=== PATIENT | male | born 1990 | race African-American/Black ===

== ENCOUNTER 2018-02-09 19:21 | Emergency (ER) | payer SELFPAY ==
[2018-02-09] MEDS ORDERED: Sodium Chloride 0.9% 10 ML Syringe FLUSH PRN ×2 (19:51→20:19)
--- NOTE | 2018-02-09 20:08 | EDM.PDOC ---
ED HPI GENERAL MEDICAL PROBLEM - General Chief Complaint: General Stated Complaint: BLOOD IN VOMIT Time Seen by Provider: 02/09/18 20:01 Source of Information: Reports: Patient History Limitations: Reports: No Limitations - History of Present Illness INITIAL COMMENTS - FREE TEXT/NARRATIVE: 27-year-old male is sent over from the walk-in clinic for evaluation and treatment of hemoptysis. Reportedly over the last 3 weeks the patient has coughed about 7 or 8 times. States when he has been coughing he will have blood in his sputum. Estimates the first is maybe a tablespoon but as he coughs up the rest of it he will be just blood tinged and then it resolves. He denies any associated symptoms. He denies any fatigue, dizziness, lightheadedness, syncope , chest pain, shortness of breath, ear pain, sore throat, unintentional weight loss or weight gain, skin rashes, joint swelling or pain, nausea, vomiting or any abdominal pain. Reports he has a good appetite. Denies any skin infections or any recent dental infection. Patient reports a lives at home with 2 roommates who do not have any symptoms. States he works at [employer] and works 55-60 hours per week. Reports that his job is very strenuous and he is often lifting. States he has only been out of the country, to [place], [place]. No recent travel. Denies any known exposure to any pathogens. Reports he relocated to [place] from [place] about 3-4 months ago. Patient is otherwise healthy and is not on any medication. X-ray done in the walk-in clinic showed a cavitary lesion in the right upper lobe. Differential included a septic emboli, atypical infection or necrotic tumor. CT of the chest with IV contrast recommended for further evaluation. Patient also had a CBC done which showed a slightly elevated blood cell count of 14.4.s. Patient reports he was adopted as a baby. Does not know his biological families history. 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 Duration: Week(s): (3) - Related Data Allergies Allergy/AdvReac Type Severity Reaction Status Date / Time No Known Allergies Allergy Verified 02/09/18 19:36 Home Meds: Home Meds . [No Known Home Meds] 02/09/18 [History] Past Medical History - Past Surgical History Musculoskeletal Surgical History: Reports: Other (See Below) Other Musculoskeletal Surgeries/Procedures:: left knee scope 2 times Social & Family History - Tobacco Use Smoking Status *Q: Current Every Day Smoker Years of Tobacco use: 5 Packs/Tins Daily: 0.2 - Caffeine Use Caffeine Use: Reports: Coffee, Energy Drinks, Soda, Tea - Recreational Drug Use Recreational Drug Use: No ED ROS GENERAL - Review of Systems Review Of Systems: See Below Constitutional: Denies: Fever, Chills, Malaise, Weakness, Fatigue, Diaphoresis, Weight Loss, Weight Gain HEENT: Denies: Ear Pain, Throat Pain Respiratory: Reports: Cough, Hemoptysis. Denies: Shortness of Breath Cardiovascular: Denies: Chest Pain, Lightheadedness, Syncope Endocrine: Denies: Fatigue GI/Abdominal: Denies: Abdominal Pain, Nausea, Vomiting Musculoskeletal: Denies: Joint Pain, Joint Swelling Skin: Denies: Rash Neurological: Denies: Headache, Syncope ED EXAM, GENERAL - Physical Exam Exam: See Below Exam Limited By: No Limitations General Appearance: Alert, WD/WN, No Apparent Distress Eye Exam: Bilateral Eye: Normal Inspection Ears: Normal External Exam Nose: Normal Inspection Throat/Mouth: Normal Inspection, Normal Lips, Normal Oropharynx, Normal Voice, No Airway Compromise Respiratory/Chest: No Respiratory Distress, Lungs Clear, Normal Breath Sounds Cardiovascular: Normal Peripheral Pulses, Regular Rate, Rhythm, No Murmur GI/Abdominal: Normal Bowel Sounds, Soft, Non-Tender Neurological: Alert, Oriented, Normal Cognition Psychiatric: Normal Affect, Normal Mood Skin Exam: Warm, Dry, Normal Color Course - Vital Signs Last Recorded V/S: Last Vital Signs Temp 98.4 F 02/09/18 19:32 Pulse 80 02/09/18 22:10 Resp 16 02/09/18 22:10 BP 141/90 H 02/09/18 22:10 Pulse Ox 99 02/09/18 22:10 - Orders/Labs/Meds Orders: Active Orders 24 hr Category Date Time Status Peripheral IV Care [RC] . DIRECTED Care 02/09/18 19:53 Active Chest Abdomen Pelvis w Cont [CT] Stat Exams 02/09/18 19:55 Taken CULTURE BLOOD [BC] Stat Lab 02/09/18 20:05 Received CULTURE BLOOD [BC] Stat Lab 02/09/18 20:10 Received Blood Culture x2 Reflex Set [OM.PC] Stat Oth 02/09/18 19:53 Ordered Peripheral IV Insertion Adult [OM.PC] Routine Ot 02/09/18 19:51 Ordered Labs: Laboratory Tests 02/09/18 02/09/18 02/09/18 Range/Units 20:05 20:05 20:05 WBC 12.09 H (4.23-9.07) K/mm3 RBC 5.39 (4.63-6.08) M/mm3 Hgb 17.8 H (13.7-17.5) gm/L Hct 49.8 (40.1-51.0) % MCV 92.4 H (79.0-92.2) fl MCH 33.0 H (25.7-32.2) pg MCHC 35.7 H (32.2-35.5) g/dl RDW Std Deviation 44.0 H (35.1-43.9) fL Plt Count 250 (163-337) K/mm3 MPV 8.9 L (9.4-12.3) fl Neutrophils % (Manual) 77 H (40-60) % Band Neutrophils % 0 (0-10) % Lymphocytes % (Manual) 12 L (20-40) % Atypical Lymphs % 0 % Monocytes % (Manual) 11 H (2-10) % Eosinophils % (Manual) 0 L (0.8-7.0) % Basophils % (Manual) 0 L (0.2-1.2) Platelet Estimate Adequate Plt Morphology Comment Normal RBC Morph Comment Normal Sodium 139 (136-145) mEq/L Potassium 3.0 L (3.5-5.1) mEq/L Chloride 101 (98-107) mEq/L Carbon Dioxide 29 (21-32) mEq/L Anion Gap 12.0 (5-15) BUN 8 (7-18) mg/dL Creatinine 1.3 (0.7-1.3) mg/dL Est Cr Clr Drug Dosing 81.21 mL/min Estimated GFR (MDRD) > 60 (>60) mL/min BUN/Creatinine Ratio 6.2 L (14-18) Glucose 97 (74-106) mg/dL Lactic Acid 0.7 (0.4-2.0) mmol/L Calcium 9.0 (8.5-10.1) mg/dL Total Bilirubin 0.8 (0.2-1.0) mg/dL AST 23 (15-37) U/L ALT 36 (16-63) U/L Alkaline Phosphatase 60 (46-116) U/L C-Reactive Protein < 0.2 (<1.0) mg/dL Total Protein 7.3 (6.4-8.2) g/dl Albumin 3.9 (3.4-5.0) g/dl Globulin 3.4 gm/dL Albumin/Globulin Ratio 1.2 (1-2) Meds: Medications Discontinued Medications Generic Name Dose Route Start Last Admin Trade Name Freq PRN Reason Stop Dose Admin Iopamidol 150 ml 02/09/18 20:19 02/09/18 20:32 Isovue-300 (61%) IVPUSH 02/09/18 20:20 100 ml ONETIME ONE Administration Potassium Chloride 20 meq 02/09/18 21:11 02/09/18 21:26 Klor-Con M20 PO 02/09/18 21:12 20 meq ONETIME ONE Administration Sodium Chloride 10 ml 02/09/18 19:51 02/09/18 20:04 Saline Flush FLUSH 10 ml ASDIRECTED PRN Administration Keep Vein Open Sodium Chloride 10 ml 02/09/18 20:19 02/09/18 20:32 Saline Flush FLUSH 10 ml ONETIME PRN Administration IV FLUSH - Re-Assessments/Exams Free Text/Narrative Re-Assessment/Exam: 02/09/18 22:07 Reviewed the labs and imaging with the patient. He has Been resting comfortably since entering the ER. Unclear what the cavitary lesion is at this point. I will have him follow up with pulmonology. Will likely need to have the lesion biopsied. Discharge instructions as documented. Departure - Departure Time of Disposition: 22:08 Disposition: Home, Self-Care 01 Condition: Good Clinical Impression: Cavitary lesion of lung, Hemoptysis - Discharge Information Instructions: Hemoptysis, [id number] Referrals: Connie Painting MD [Ordering Only Provider] - PCP,None [Primary Care Provider] - Forms: ED Department Discharge Additional Instructions: Follow up with pulmonology. They're located in [place] at [facility]. [address]. Call [phone] to schedule an appointment with them. Recommend Dr. Connie Painting. A disc of your CT has been provided for you. Please bring this to your follow- up with pulmonology. Please return to the ER if your symptoms change or worsen. - My Orders Last 24 Hours: My Active Orders 02/09/18 19:51 Peripheral IV Insertion Adult [OM.PC] Routine 02/09/18 19:53 Peripheral IV Care [RC] . DIRECTED Blood Culture x2 Reflex Set [OM.PC] Stat 02/09/18 19:55 Chest Abdomen Pelvis w Cont [CT] Stat 02/09/18 20:05 CULTURE BLOOD [BC] Stat 02/09/18 20:10 CULTURE BLOOD [BC] Stat - Assessment/Plan Last 24 Hours: My Active Orders 02/09/18 19:51 Peripheral IV Insertion Adult [OM.PC] Routine 02/09/18 19:53 Peripheral IV Care [RC] . DIRECTED Blood Culture x2 Reflex Set [OM.PC] Stat 02/09/18 19:55 Chest Abdomen Pelvis w Cont [CT] Stat 02/09/18 20:05 CULTURE BLOOD [BC] Stat 02/09/18 20:10 CULTURE BLOOD [BC] Stat
[2018-02-09] MEDS ORDERED: Iopamidol 612 MG/ML 150 ML Bottle IVPUSH ONE (20:19)
[2018-02-09] MEDS ORDERED: Potassium Chloride 20 MEQ Tab.ER PO ONE (21:11)
--- NOTE | 2018-02-12 08:55 | CT ---
CT chest Technique: Multiple axial sections were obtained from above the lung apices inferiorly through the lung bases. Intravenous contrast was utilized. Comparison: No prior chest imaging. Findings: Mediastinum and hilar region show no adenopathy or mass. No pericardial thickening is seen. No axillary adenopathy is identified. Air-filled cavities seen within the upper right lung measuring about 2.7 cm showing a small linear scar to the pleural surface. Small adjacent nodular density seen inferiorly off this cavity measuring about 9 mm in size. Mild nodular interstitial change is identified within other portions of the right upper lung. Lungs otherwise are clear. No pleural effusions are seen. Bone window settings were reviewed which appear within normal limits for the patient's age. Impression: 1. 2.7 cm cystic lesion within the right upper lung with adjacent nodule. Nodule most likely cause of obstruction of the bronchus with distal cystic dilatation and slight scarring. Nodule is otherwise nonspecific regarding etiology. 2. Mild nodular interstitial change within the upper right lung most likely infectious in etiology which may be from usual bacteria, viral although atypical infection is also possible including fungal infection. 3. CT study of the chest is otherwise unremarkable. Diagnostic code #5 I agree with preliminary report from [facility] [facility], finalized at 02/09/18, 10:[address] abdomen and pelvis Technique: Multiple axial sections were obtained from above the dome of the diaphragm inferiorly through the pubic symphysis. Intravenous contrast was utilized. No oral contrast has been given. Comparison: No prior abdominal imaging. Findings: Small amount of fat is identified adjacent to the liver within the right lobe which is incidental. Minimal diminished density noted adjacent to the ligamentum teres fissure which is felt to be incidental and due to minimal amount of fat. Liver is otherwise unremarkable. Spleen appears normal. Adrenal glands show no nodule. Kidneys show symmetric contrast enhancement without hydronephrosis or mass. Pancreas appears normal. Aorta shows no aneurysmal dilatation. No retroperitoneal adenopathy or mesenteric abnormalities are seen. No pelvic mass or adenopathy is seen. Appendix is not visualized with certainty. Slight increased stool is seen within the colon. Bone window settings were reviewed which appear within normal limits for the patient's age. Delayed images show contrast within the distal ureters and within the bladder. Impression: 1. Incidental findings. Nothing acute seen on CT study of the abdomen and pelvis. Diagnostic code #2 I agree with preliminary report from [facility], finalized at 02/09/18, 10:46 PM Central Time
== END 2018-02-09 22:15 | disposition home or self-care (01) ==
LOC: JD.ED 19:21
DX: R04.2 Hemoptysis (principal); R91.1 Solitary pulmonary nodule; F17.210 Nicotine dependence, cigarettes, uncomplicated
CPT/HCPCS: 36415; 71260; 74177; 80053; 83605; 85007; 85027; 86140; 87040; 99284; A9270; J7050; Q9967